=== PATIENT | male | born 1995 | race Caucasian/White ===

== ENCOUNTER 2020-01-04 20:44 | Emergency (ER) | payer SELFPAY ==
[~2020-01-04] VITALS: Ht 177.8 cm; Wt 77.1 kg
[2020-01-04 20:50] VITALS: BP 134/91
[2020-01-04] MEDS ORDERED: FLUORESCEIN SODIUM OPHTH 1 EA STRIP ONE (21:09)
[2020-01-04] MEDS ORDERED: TRAMADOL HCL 50 MG TABLET ONE (21:09)
[2020-01-04] MEDS ORDERED: TRAMADOL HCL 50 MG TABLET PO ONE (21:30)
[2020-01-04] MEDS ORDERED: FLUORESCEIN SODIUM OPHTH 1 EA STRIP OP ONE (21:30)
[2020-01-04] MEDS ORDERED: TETRAcaine 5 ML BOTTLE EACHEYE ONE (21:30)
== END 2020-01-04 22:36 | disposition home or self-care (01) ==
LOC: ER 20:48
DX: S05.02XA Injury of conjunctiva and corneal abrasion without foreign body, left eye, initial encounter (principal); S05.01XA Injury of conjunctiva and corneal abrasion without foreign body, right eye, initial encounter; X58.XXXA Exposure to other specified factors, initial encounter; Y93.89 Activity, other specified; Y92.89 Other specified places as the place of occurrence of the external cause; Y99.8 Other external cause status